=== PATIENT | female | born 1975 | race Hispanic/Latino ===

== ENCOUNTER 2019-12-28 16:48 | Emergency (ER) | payer BC ==
[~2019-12-28] VITALS: Ht 157.5 cm; Wt 81.6 kg
[2019-12-28] MEDS ORDERED: HYDROCODONE/APAP 10MG-325MG TAB ONE (18:15)
[2019-12-28] MEDS ORDERED: HYDROCODONE/APAP 10MG-325MG TAB PO ONE (18:15)
[2019-12-28] MEDS ORDERED: KETOROLAC TROMETHAMINE 60 MG/2 ML VIAL IM ONE (20:00)
[2019-12-28 21:15] VITALS: BP 131/86
== END 2019-12-28 21:18 | disposition home or self-care (01) ==
LOC: ER 17:37
DX: S52.042A Displaced fracture of coronoid process of left ulna, initial encounter for closed fracture (principal); W01.0XXA Fall on same level from slipping, tripping and stumbling without subsequent striking against object, initial encounter; Y93.01 Activity, walking, marching and hiking; F17.210 Nicotine dependence, cigarettes, uncomplicated
CPT/HCPCS: 29125; 73030; 73080; 73090; 73110; 99284; J1885